=== PATIENT | female | born 1965 | race Caucasian/White ===

== ENCOUNTER → 2017-03-11 | Outpatient (CLI) | payer OTHER ==
--- NOTE | 2017-03-12 10:18 | MM ---
Reason for exam: screening (asymptomatic). Last mammogram was performed 1 year and 1 month ago. History: Patient is postmenopausal. Family history of breast cancer in aunt. Physical Findings: A clinical breast exam by your physician is recommended on an annual basis and results should be correlated with mammographic findings. MG Screening Mammo w CAD Bilateral CC and MLO view(s) were taken. Prior study comparison: February 20, 2016, bilateral MG screening mammo w CAD. January 24, 2015, bilateral MG screening mammo w CAD. The breast tissue is almost entirely fat. There is no discrete abnormality. No significant changes when compared with prior studies. ASSESSMENT: Negative, BI-RAD 1 RECOMMENDATION: Routine screening mammogram of both breasts in 1 year.
== END | disposition home or self-care (01) ==
LOC: RADMAMWWP 12:59
PROVIDERS: ATTEND Family Medicine
DX: Z12.31 Encounter for screening mammogram for malignant neoplasm of breast (principal)

== ENCOUNTER 2020-07-14 07:17 | Day surgery (SDC) | payer OTHER ==
[2020-07-12 10:06] VITALS: BMI 47.2
[~2020-07-14 07:17] MED LIST: LACTATED RINGERS 1,000 ML IV SCH
[2020-07-14 08:14] VITALS: TEMP 97.9
[2020-07-14 08:30] LABS: Glucose,Whole Blood 103 mg/dL (75-99)
[2020-07-14] MEDS ORDERED: ONDANSETRON 4 MG/2 ML VIAL ONE (08:32)
[2020-07-14] MEDS ORDERED: ONDANSETRON 4 MG/2 ML VIAL IVP ONE (08:32)
[2020-07-14] MEDS ORDERED: PROPOFOL 10 MG/ML 20 ML VIAL IV ONE (08:35)
[2020-07-14] MEDS ORDERED: LIDOCAINE 1% INJ 10MG/ML (20 ML MDV) ONE (08:35)
--- NOTE | 2020-07-14 08:38 | P.GSHP ---
History of Present Illness H&P Date: 07/14/20 Chief Complaint: GERD This a 55-year-old female who presents today for EGD. She's had issues with GERD. Her BMI is 48. Past Medical History Past Medical History: Diabetes Mellitus, GERD/Reflux, Hypertension Additional Past Medical History / Comment(s): diabetes-no meds- watching diet., states she had vertigo nausea and diarrhea for a month-states none in the last week., scratches on arms from her cat. History of Any Multi-Drug Resistant Organisms: None Reported Past Surgical History: Breast Surgery, Cholecystectomy Additional Past Surgical History / Comment(s): LAPAROSCOPY, LAPAROTOMY WITH CYSTS ON OVARIES REMOVED, FATTY LUMPS ON BREASTS, SALIVA GLAND SURGERY Past Anesthesia/Blood Transfusion Reactions: Motion Sickness, Postoperative Nausea & Vomiting (PONV) Additional Past Anesthesia/Blood Transfusion Reaction / Comment(s): PATIENTS MOTHER HAS PONV Past Psychological History: Anxiety, Depression Smoking Status: Current every day smoker Past Alcohol Use History: None Reported Additional Past Alcohol Use History / Comment(s): SMOKES 1/2 PPD OR LESS,, SMOKING OFF AND ON SINCE 13 YEARS OLD Past Drug Use History: None Reported - Past Family History Mother Family Medical History: No Reported History Medications and Allergies Home Medications Medication Instructions Recorded Confirmed Type DULoxetine HCL [Cymbalta] 60 mg PO BID 07/12/20 07/12/20 History Diclofenac Sodium [Voltaren] 75 mg PO BID 07/12/20 07/12/20 History Omeprazole 20 mg PO DAILY 07/12/20 07/12/20 History amLODIPine [Norvasc] 5 mg PO DAILY 07/12/20 07/12/20 History buPROPion XL [Wellbutrin Xl] 150 mg PO BID 07/12/20 07/12/20 History Allergies Allergy/AdvReac Type Severity Reaction Status Date / Time clarithromycin [From Biaxin] Allergy Unknown Rash/Hives Verified 07/12/20 09:31 sulfamethoxazole Allergy Unknown Rash/Hives Verified 07/12/20 09:30 [From Bactrim] trimethoprim [From Bactrim] Allergy Unknown Rash/Hives Verified 07/12/20 09:30 Surgical - Exam Vital Signs Temp Pulse Resp BP Pulse Ox 97.9 F 96 16 165/106 100 07/14/20 08:12 07/14/20 08:12 07/14/20 08:12 07/14/20 08:12 07/14/20 08:12 - General well developed, well nourished, no distress - Eyes PERRL - ENT normal pinna - Neck no masses - Respiratory normal expansion - Cardiovascular Rhythm: regular - Abdomen Abdomen: soft, non tender Results - Labs Abnormal Lab Results - Last 24 Hours (Table) 07/14/20 Range/Units 08:29 POC Glucose (mg/dL) 103 H (75-99) mg/dL Assessment and Plan Assessment: GERD. We'll perform EGD. Morbid obesity BMI 48
--- NOTE | 2020-07-14 08:48 | P.OP ---
Date of Procedure: 07/14/20 Preoperative Diagnosis: GERD Morbid obesity, BMI 40 Postoperative Diagnosis: Morbid obesity Antral gastritis Small sliding hiatal hernia Minimal esophagitis Procedure(s) Performed: EGD Anesthesia: MAC Surgeon: Pavan Soliz Pathology: other (Antrum, esophagus) Condition: stable Disposition: PACU Description of Procedure: The patient's placed on the endoscopy table in the lateral position. She received IV sedation. The gastroscope oropharynx passed in the esophagus into the stomach. Scope was then placed through the pylorus. The first and second portion of the duodenum appeared normal. Scope was then brought back the antrum and a biopsies performed. The scope was unretroflexed and the remainder of the stomach appeared normal. There was a small sliding hiatal hernia. The GE junction was at 39 cm. The distal esophagus inflamed a biopsies performed. The proximal esophagus appeared normal. The scope was withdrawn for patient.
[2020-07-14 09:12] VITALS: BP 130/77; PULSE 77; RESP 20
== END 2020-07-14 09:19 | disposition home or self-care (01) ==
LOC: ORWHC2ENDO 07:17
PROVIDERS: ATTEND Surgery
DX: K29.50 Unspecified chronic gastritis without bleeding (principal); K44.9 Diaphragmatic hernia without obstruction or gangrene; K20.0 Eosinophilic esophagitis; K21.9 Gastro-esophageal reflux disease without esophagitis; E66.01 Morbid (severe) obesity due to excess calories; Z68.42 Body mass index [BMI] 45.0-49.9, adult; E11.9 Type 2 diabetes mellitus without complications; I10 Essential (primary) hypertension; Z90.49 Acquired absence of other specified parts of digestive tract; Z98.890 Other specified postprocedural states; F41.9 Anxiety disorder, unspecified; F32.9 Major depressive disorder, single episode, unspecified; F17.210 Nicotine dependence, cigarettes, uncomplicated; Z79.899 Other long term (current) drug therapy; Z88.1 Allergy status to other antibiotic agents; Z88.2 Allergy status to sulfonamides
CPT/HCPCS: 88305; 43239; J2405; J2001; J2704

== ENCOUNTER → 2020-11-26 | Outpatient (CLI) | payer OTHER ==
--- NOTE | 2020-11-26 12:04 | MR ---
EXAMINATION TYPE: MR knee RT wo con DATE OF EXAM: 11/26/2020 COMPARISON: None HISTORY: Right knee pain, locking, and swelling for years. TECHNIQUE: Multiplanar, multisequence imaging of the right knee is performed without IV contrast. FINDINGS: MEDIAL MENISCUS: No normal meniscal tissue is seen. LATERAL MENISCUS: Myxoid degeneration and thinning noted bilaterally without distinct tear. CRUCIATE LIGAMENTS: Normal ACL or PCL is not identified. COLLATERAL LIGAMENTS: The medial collateral ligament and lateral collateral ligament complex are intact and unremarkable. EXTENSOR MECHANISM: Visualized quadriceps and patellar tendons are intact. EFFUSION: No significant suprapatellar joint effusion. POPLITEAL CYST: Vargas's cyst identified with craniocaudal measurement of 4.1 cm. TRICOMPARTMENT SPACES: Marked multicompartmental degenerative change with subchondral cyst formation, bone marrow edema and sclerosis as well as spur formation. CARTILAGE: Marked thinning and irregularity. BONE MARROW SIGNAL: No focal abnormal marrow signal is appreciated. OTHER: No additional significant abnormality is appreciated. IMPRESSION: 1. Advanced osteoarthritis. 2. No normal-appearing meniscus is seen medially. 3. I do not see evidence for ACL or PCL.
== END | disposition home or self-care (01) ==
LOC: RADMRIMAIN 10:53
PROVIDERS: ATTEND Family Medicine
DX: M17.11 Unilateral primary osteoarthritis, right knee (principal)